=== PATIENT | female | born 1940 | race Caucasian/White ===

== ENCOUNTER → 2024-07-18 17:05 | Outpatient (REF) | payer OTHER, SELFPAY | LOC: PAVMRI 17:05 | PROVIDERS: ATTENDING PHYSICIAN Specialist; FAMILY PHYSICIAN Family Medicine | DX: M25.552 Pain in left hip (principal); M54.16 Radiculopathy, lumbar region | CPT/HCPCS: 72148; 73721 ==

== ENCOUNTER → 2025-04-11 08:42 | Outpatient (REF) | payer OTHER, SELFPAY | LOC: HWRCS 08:42 | PROVIDERS: ATTENDING PHYSICIAN Internal Medicine Cardiovascular Disease; FAMILY PHYSICIAN Family Medicine | DX: R06.02 Shortness of breath (principal) | CPT/HCPCS: 93306 ==